=== PATIENT | female | born 1985 | race Caucasian/White ===

== ENCOUNTER → 2023-09-20 | Outpatient (CLI) | payer MEDICAID | END | disposition home or self-care (01) | LOC: RAD 15:37 | PROVIDERS: ATTEND Nurse Practitioner Primary Care | DX: D49.0 Neoplasm of unspecified behavior of digestive system (principal); K82.4 Cholesterolosis of gallbladder; R10.9 Unspecified abdominal pain | CPT/HCPCS: 76700 ==